=== PATIENT | male | born 1950 | race Hispanic/Latino ===

== ENCOUNTER 2017-12-30 08:32 | Emergency (ER) | payer MEDICARE ==
[~2017-12-30 08:32] MED LIST: AEC81 PO; ROSU20TA38 PO
[2017-12-30 09:14] LABS: BASOPHILS % (AUTO) 1.1 % (0.0-5.0); EOSINOPHILS % (AUTO) 4.9 % (0.0-8.0); HEMATOCRIT 42.1 % (42-54); LYMPHOCYTES % (AUTO) 20.2 % (21.0-51.0); MEAN CORPUSCULAR HEMOGLOBIN 31.9 pg (27.0-33.0); MEAN CORPUSCULAR HGB CONC 35.9 g/dL (32.0-36.0); MEAN CORPUSCULAR VOLUME 88.8 fL (79-99); MONOCYTES % (AUTO) 5.9 % (3.0-13.0); NEUTROPHILS % (AUTO) 67.9 % (40.0-77.0); PLATELET COUNT (AUTO) 122 K/uL (130-400); RED BLOOD CELL COUNT(AUTO) 4.75 MIL/uL (4.50-6.20); RED CELL DISTRIBUTION WIDTH 12.9 % (11.0-15.5); WHITE BLOOD COUNT (AUTO) 5.8 K/uL (4.8-10.8)
[2017-12-30 09:29] LABS: POTASSIUM 4.6 mmol/L (3.5-5.1)
[2017-12-30 09:35] LABS: ALBUMIN 3.7 g/dL (3.5-5.0); BILIRUBIN,TOTAL 0.6 mg/dL (0.2-1.0)
[2017-12-30] MEDS ORDERED: PHENYTOIN SODIUM 100 MG ERCAP PO ONE (10:16)
[2017-12-30] MEDS ORDERED: FOSPHENYTOIN SODIUM 500 MG/10ML VIAL IJ ONE (10:17)
== END 2017-12-30 13:21 | disposition home or self-care (01) ==
LOC: EDH 08:32
DX: G40.509 Epileptic seizures related to external causes, not intractable, without status epilepticus (principal); D69.6 Thrombocytopenia, unspecified; I25.10 Atherosclerotic heart disease of native coronary artery without angina pectoris; I10 Essential (primary) hypertension; Z86.73 Personal history of transient ischemic attack (TIA), and cerebral infarction without residual deficits; Z95.1 Presence of aortocoronary bypass graft; Z87.891 Personal history of nicotine dependence
CPT/HCPCS: 36415; 80053; 80185; 85025; 93005; 96365; 99285; Q2009

== ENCOUNTER → 2018-04-13 | Outpatient (CLI) | payer MEDICARE ==
[~2018-04-13] MED LIST changes: +ROSU20TA30 PO; -ROSU20TA38 PO
== END | disposition home or self-care (01) ==
LOC: SHCH 10:30
PROVIDERS: ATTEND Internal Medicine Cardiovascular Disease
DX: I25.709 Atherosclerosis of coronary artery bypass graft(s), unspecified, with unspecified angina pectoris (principal); I10 Essential (primary) hypertension; E78.5 Hyperlipidemia, unspecified; I65.23 Occlusion and stenosis of bilateral carotid arteries
CPT/HCPCS: 93880

== ENCOUNTER → 2018-05-17 | Outpatient (CLI) | payer MEDICARE ==
[~2018-05-17] MED LIST changes: +ISOVUE-370 50ML VIAL IV ONE
== END | disposition home or self-care (01) ==
LOC: RAH 08:03
PROVIDERS: ATTEND Internal Medicine Cardiovascular Disease
DX: I65.23 Occlusion and stenosis of bilateral carotid arteries (principal)
CPT/HCPCS: 70498; Q9967

== ENCOUNTER 2018-07-19 10:00 | Inpatient (IN) | payer MEDICARE ==
[~2018-07-19] VITALS: Ht 165.1 cm; Wt 70.4 kg
[~2018-07-19 10:00] MED LIST changes: +CHOL100040 PO; +CLOP75TA14 PO; +FINA5TAB41 PO; -ISOVUE-370 50ML VIAL IV ONE; +METO50TA18 PO; +NITR0.4T50 SL; +PHEN100C9 PO; +SERT100T12 PO; +TAMS0.4C32 PO
[2018-07-20 10:49] LABS: BASOPHILS % (AUTO) 0.4 % (0.0-5.0); HEMATOCRIT 44.8 % (42-54); LYMPHOCYTES % (AUTO) 23.8 % (21.0-51.0); MEAN CORPUSCULAR HEMOGLOBIN 31.6 pg (27.0-33.0); MEAN CORPUSCULAR HGB CONC 34.4 g/dL (32.0-36.0); MONOCYTES % (AUTO) 7.9 % (3.0-13.0); NEUTROPHILS % (AUTO) 64.9 % (40.0-77.0); NUCLEATED RED BLOOD CELLS 0.2 % (0.0-0.19); PLATELET COUNT (AUTO) 136 K/uL (130-400); RED BLOOD CELL COUNT(AUTO) 4.87 MIL/uL (4.50-6.20); RED CELL DISTRIBUTION WIDTH 13.1 % (11.0-15.5); WHITE BLOOD COUNT (AUTO) 5.3 K/uL (4.8-10.8)
[2018-07-20 10:58] LABS: CREATININE 0.8 mg/dL (0.5-1.5); POTASSIUM 4.2 mmol/L (3.5-5.1)
[2018-07-20 10:59] VITALS: BP 135/69
[2018-07-20] MEDS: CEFAZOLIN SODIUM 1 GM VIAL IVP SCH (11:30)
[2018-07-20] MEDS ORDERED: LEVE750T4 PO (11:35)
[2018-07-20] MEDS ORDERED: MELA3TAB PO (11:35)
[2018-07-21] MEDS: CEFAZOLIN SODIUM 1 GM VIAL IVP SCH (11:30)
[2018-07-22] MEDS: CEFAZOLIN SODIUM 1 GM VIAL IVP SCH (11:30)
[2018-07-23] VITALS (23 sets, daily range): BP systolic 110–182; BP diastolic 56–135
[2018-07-23] MEDS ORDERED: PHENYLEPHRINE HCL 10 MG/ML 1ML VIAL IV ONE (06:46)
[2018-07-23] MEDS ORDERED: LIDOCAINE HCL MPF 1% 5ML VIAL ONE (06:46)
[2018-07-23] MEDS ORDERED: FENTANYL CITRATE PF 50 MCG/1 ML 2ML VIAL ONE (06:46)
[2018-07-23] MEDS ORDERED: NOREPINEPHRINE BITARTRATE 1 MG/1 ML ML IV ONE ×3 (06:46→09:14)
[2018-07-23] MEDS ORDERED: PROPOFOL 10 MG/ML 20ML VIAL IV ONE ×2 (06:46→09:50)
[2018-07-23] MEDS ORDERED: MIDAZOLAM HCL 1 MG/ML 2ML VIAL ONE (06:46)
[2018-07-23] MEDS ORDERED: DEXMEDETOMIDINE HCL 200 MCG/2 ML VIAL IV SCH (07:00)
[2018-07-23] MEDS ORDERED: NICARDIPINE HCL 25 MG/10 ML ML IV ONE (07:05)
[2018-07-23] MEDS ORDERED: LACTATED RINGERS 1000ML 1,000 ML IV ONE (07:15)
[2018-07-23] MEDS ORDERED: SODIUM BICARB [NEONATAL] 4.2% 10ML SYG ONE (07:16)
[2018-07-23] MEDS ORDERED: HEPARIN SODIUM 1000UNIT/ML 10ML VIAL ONE ×2 (07:17→08:19)
[2018-07-23] MEDS ORDERED: LIDOCAINE HCL-MPF 1% 2ML VIAL ONE (07:17)
[2018-07-23] MEDS ORDERED: BUPIVACAINE/PF 0.25% 50ML VIAL IJ ONE (07:17)
[2018-07-23] MEDS ORDERED: THROMBIN-JMI 5000 UNIT/VIAL TP ONE ×2 (07:18→09:32)
[2018-07-23] MEDS ORDERED: NEOMY SULF/POLYMYXIN B SULFATE 1 ML AMPUL IR ONE (07:18)
[2018-07-23] MEDS ORDERED: LIDOCAINE HCL 1% MDV 50ML VIAL ONE (07:22)
[2018-07-23] MEDS ORDERED: OCTYL 2-CYANOACRYLATE 1 EACH TP ONE (08:52)
[2018-07-23] MEDS ORDERED: FAMOTIDINE/PF 20 MG/2 ML VIAL IV ONE (10:05)
[2018-07-23] MEDS ORDERED: THROMBIN-JMI 20000 UNIT KIT TP ONE (10:24)
[2018-07-23] MEDS ORDERED: VASOPRESSIN 20 UNITS in SODIUM CHLORIDE 0.9% 50 ML IVP PRN (10:45)
[2018-07-23] MEDS: CEFAZOLIN SODIUM 1 GM VIAL IVP SCH (11:32)
[2018-07-23] MEDS ORDERED: MORPHINE SULFATE 2 MG/ML 1ML SYG IVP PRN (14:00)
[2018-07-23] MEDS ORDERED: HYDROCODONE/ACETAMINOPHEN 5/325 MG TAB PO PRN ×2 (14:00)
[2018-07-23] MEDS ORDERED: ONDANSETRON HCL 4 MG/2 ML VIAL IVP PRN (14:00)
[2018-07-23] MEDS ORDERED: MORPHINE SULFATE 4 MG/1ML SYG IV PRN (14:00)
[2018-07-23] MEDS ORDERED: LABETALOL HCL 5 MG/ML 20ML VIAL IV ONE (14:04)
[2018-07-23] MEDS: NITROGLYCERIN 1GM/1 INCH PACKET TD SCH ×2 (14:21→22:25)
[2018-07-23] MEDS: LABETALOL 20 MG/4 ML DISP.SYRIN IV PRN ×2 (14:37→15:22)
[2018-07-23] MEDS: DEXTROSE 5%-LACTATED RINGERS 1,000 ML IV SCH (15:10)
[2018-07-23] MEDS ORDERED: NITROGLYCERIN 0.4 MG SL TAB SL SCH (17:15)
[2018-07-23] MEDS ORDERED: LABETALOL HCL 5 MG/ML 20ML VIAL IV PRN (17:21)
[2018-07-23] MEDS ORDERED: NICARDIPINE HCL 100 MG in DEXTROSE 5%-WATER 60 ML IV PRN (19:30)
[2018-07-23] MEDS ORDERED: SERTRALINE HCL 50 MG TABLET PO SCH (21:00)
[2018-07-23] MEDS ORDERED: TAMSULOSIN HCL 0.4 MG CAP.ER.24H PO SCH (21:00)
[2018-07-23] MEDS ORDERED: **HM**(Melatonin 3 MG PO SCH (21:00)
[2018-07-23] MEDS ORDERED: ATORVASTATIN CALCIUM 40 MG TABLET PO SCH (21:00)
[2018-07-23] MEDS: PHENYTOIN SODIUM 100 MG ERCAP PO SCH (21:04)
[2018-07-23] MEDS: METOPROLOL TARTRATE 50 MG TAB PO SCH (21:05)
[2018-07-23] MEDS: LEVETIRACETAM 500 MG TABLET PO SCH (21:05)
[2018-07-24] VITALS (13 sets, daily range): BP systolic 113–174; BP diastolic 52–85
[2018-07-24] MEDS: DEXTROSE 5%-LACTATED RINGERS 1,000 ML IV SCH (03:36)
[2018-07-24] MEDS: NITROGLYCERIN 1GM/1 INCH PACKET TD SCH (05:46)
[2018-07-24] MEDS: METOPROLOL TARTRATE 50 MG TAB PO SCH (07:59)
[2018-07-24] MEDS: PHENYTOIN SODIUM 100 MG ERCAP PO SCH (07:59)
[2018-07-24] MEDS: LEVETIRACETAM 500 MG TABLET PO SCH (07:59)
[2018-07-24] MEDS ORDERED: FINASTERIDE 5 MG TABLET PO SCH (09:00)
[2018-07-24] MEDS ORDERED: ASPIRIN 81 MG EC TAB PO SCH (09:00)
[2018-07-24] MEDS ORDERED: **HM**Cholecalciferol (Vitamin D3) (Vitamin D3) 1,000 UNIT PO SCH (09:00)
[2018-07-24] MEDS ORDERED: CLOPIDOGREL BISULFATE 75 MG TAB PO SCH (09:00)
[2018-07-24] MEDS: CEFAZOLIN SODIUM 1 GM VIAL IVP SCH (11:30)
[2018-07-24] MEDS ORDERED: LOSARTAN 50 MG TABLET PO SCH (12:00)
== END 2018-07-24 14:45 | disposition home or self-care (01) | DRG 38 ==
LOC: EDSTATUS 10:00 → DAHIP 07-23 05:51 → 2CH 07-23 11:11
PROVIDERS: ADMIT Surgery; ATTEND Surgery
PROC: 03CJ0ZZ Extirpation of Matter from Left Common Carotid Artery, Open Approach (ICD-10-PCS; principal; 2018-07-23 07:40)
DX: I65.22 Occlusion and stenosis of left carotid artery (principal); I69.354 Hemiplegia and hemiparesis following cerebral infarction affecting left non-dominant side; I10 Essential (primary) hypertension; E78.5 Hyperlipidemia, unspecified; G40.909 Epilepsy, unspecified, not intractable, without status epilepticus; I25.10 Atherosclerotic heart disease of native coronary artery without angina pectoris; Z91.041 Radiographic dye allergy status; Z95.1 Presence of aortocoronary bypass graft; Z68.25 Body mass index [BMI] 25.0-25.9, adult; Z91.013 Allergy to seafood
CPT/HCPCS: 36415; 80048; 85025; 88304; 92610; 93005; A4218; J0690; J1644; J2250; J2370; J2704; J3010; J3490; J7040; J7060; J7120

== ENCOUNTER → 2018-11-08 | Outpatient (CLI) | payer MEDICARE ==
[~2018-11-08] MED LIST changes: +LEVE750T4 PO; +MELA3TAB PO
== END | disposition home or self-care (01) ==
LOC: SHCH 09:20
PROVIDERS: ATTEND Internal Medicine Cardiovascular Disease
DX: I65.23 Occlusion and stenosis of bilateral carotid arteries (principal); I77.1 Stricture of artery; I25.10 Atherosclerotic heart disease of native coronary artery without angina pectoris
CPT/HCPCS: 93880

== ENCOUNTER → 2019-05-23 | Outpatient (CLI) | payer MEDICARE ==
[~2019-05-23] MED LIST changes: -ROSU20TA30 PO; +ROSU20TA31 PO
== END | disposition home or self-care (01) ==
LOC: SHCH 10:00
PROVIDERS: ATTEND Internal Medicine Cardiovascular Disease
DX: I73.9 Peripheral vascular disease, unspecified (principal)
CPT/HCPCS: 93925

== ENCOUNTER → 2020-03-17 | Outpatient (CLI) | payer MEDICARE ==
[~2020-03-17] MED LIST changes: -MELA3TAB PO; +MELA3TAB41 PO
== END | disposition home or self-care (01) ==
LOC: SHCH 10:10
PROVIDERS: ATTEND Internal Medicine Cardiovascular Disease
DX: R09.89 Other specified symptoms and signs involving the circulatory and respiratory systems (principal)
CPT/HCPCS: 93306; 93880

== ENCOUNTER → 2020-04-14 | Outpatient (CLI) | payer MEDICARE ==
[~2020-04-14] MED LIST changes: +IOHEXOL-350 50ML VIAL IV ONE
== END | disposition home or self-care (01) ==
LOC: RAH 08:29
PROVIDERS: ATTEND Internal Medicine Cardiovascular Disease
DX: I65.22 Occlusion and stenosis of left carotid artery (principal)
CPT/HCPCS: 70498; Q9967

== ENCOUNTER → 2021-05-26 | Outpatient (CLI) | payer MEDICARE ==
[~2021-05-26] MED LIST changes: -IOHEXOL-350 50ML VIAL IV ONE; +SERT-440 PO; -SERT100T12 PO
== END | disposition home or self-care (01) ==
LOC: SHCH 10:55
PROVIDERS: ATTEND Internal Medicine Cardiovascular Disease
DX: I65.23 Occlusion and stenosis of bilateral carotid arteries (principal)
CPT/HCPCS: 93880

== ENCOUNTER → 2022-10-27 | Outpatient (CLI) | payer MEDICARE ==
[~2022-10-27] MED LIST changes: +CLOP-31 PO; -CLOP75TA14 PO
== END | disposition home or self-care (01) ==
LOC: SHCH 12:50
PROVIDERS: ATTEND Internal Medicine Cardiovascular Disease
DX: I65.21 Occlusion and stenosis of right carotid artery (principal)
CPT/HCPCS: 93880

== ENCOUNTER → 2022-11-29 | Outpatient (CLI) | payer MEDICARE ==
[~2022-11-29] MED LIST changes: +REGADENOSON 0.4 MG/5 ML PF SYG IVP SCH
== END | disposition home or self-care (01) ==
LOC: SHCH 09:12
PROVIDERS: ATTEND Internal Medicine Cardiovascular Disease
DX: I25.10 Atherosclerotic heart disease of native coronary artery without angina pectoris (principal); I65.23 Occlusion and stenosis of bilateral carotid arteries; Z95.1 Presence of aortocoronary bypass graft; Z79.82 Long term (current) use of aspirin; Z79.899 Other long term (current) drug therapy; Z95.828 Presence of other vascular implants and grafts
CPT/HCPCS: 78452; 96374; 93017; J2785; A9500 ×2

== ENCOUNTER → 2023-12-18 | Outpatient (CLI) | payer MEDICARE, OTHER ==
[~2023-12-18] MED LIST changes: -REGADENOSON 0.4 MG/5 ML PF SYG IVP SCH; -ROSU20TA31 PO; +ROSU20TA73 PO
== END | disposition home or self-care (01) ==
LOC: SHCH 11:26
PROVIDERS: ATTEND Internal Medicine Cardiovascular Disease
DX: I35.0 Nonrheumatic aortic (valve) stenosis (principal); I25.10 Atherosclerotic heart disease of native coronary artery without angina pectoris
CPT/HCPCS: 93306